=== PATIENT | female | born 1960 | race Caucasian/White ===

== ENCOUNTER 2020-01-14 10:42 | Observation (INO) | payer MEDICARE, MEDICAID, OTHER ==
[~2020-01-14 10:42] MED LIST: Iopamidol-370 76% 500 ML 1 ML ONE
--- NOTE | 2020-01-14 10:55 | CT ---
CT BRAIN WITHOUT CONTRAST: HISTORY: Level 1 stroke. Visual disturbances, weakness and slurred speech FINDINGS: No evidence of acute infarct, hemorrhage, midline shift or abnormal extra-axial fluid collections is seen. There are changes of mild chronic small vessel ischemic disease in the periventricular white matter. The ventricular size is appropriate and the basilar cisterns are patent. The bony calvarium i s intact. The visualized paranasal sinuses and mastoid air cells are well aerated. IMPRESSION: No CT evidence of acute intracranial process. Findings were discussed over the telephone with ER physician Dr. French Lancaster at 10:51 AM.
--- NOTE | 2020-01-14 11:19 | RAD ---
EXAM: CHEST ONE VIEW HISTORY: Level 1 stroke alert. Altered mental status. COMPARISON: None FINDINGS: The cardiac silhouette and pulmonary vasculature is within normal limits. The lungs are clear. There is left convex curvature of the thoracolumbar spine with degenerative changes noted in the spine. Postoperative changes left shoulder are partially imaged. IMPRESSION: No acute cardiopulmonary process.
--- NOTE | 2020-01-14 11:24 | CT ---
CT arteriogram neck with IV contrast and 3-D imaging CT arteriogram head with IV contrast and 3-D imaging HISTORY: Altered mental status. Slurred speech. TIA. FINDINGS: There is good contrast opacification of the aortic arch with normal branching of the great vessels. Arterial calcification most pronounced at the proximal right subclavian artery where moderate degree of stenosis, approximately 50%, is apparent. Good flow into each carotid and vertebra l system. Each carotid bifurcation is patent without plaque or calcification. [place] of [place] is intact. Good flow into each cerebral and cerebellar system. No enhancing brain lesions are apparent. Mild emphysematous changes at the lung apices evident. IMPRESSION : No acute intracranial or vascular abnormalities are demonstrated. Atherosclerosis with stenosis of the right subclavian artery. Findings were called to Dr. Lancaster in the emergency department at 1116 hours Code CR.
[2020-01-14] MEDS ORDERED: Aspirin 325 MG TAB ONE (11:45)
[2020-01-14 11:47] LABS: #Basophils 0.1 thou/uL (0.0-0.2); #Eosinphils 0.4 thou/uL (0.0-0.7); #Lymphocytes 1.6 thou/uL (1.20-3.40); #Monocytes 0.3 thou/uL (0.11-0.59); #Neutrophils 1.8 thou/uL (1.40-6.50); %Basophils 1.3 % (0.0-1.0); %Eosinophils 10.4 % (0.0-10.0); %Lymphocytes 37.9 % (21.0-51.0); %Monocytes 6.7 % (0.0-10.0); %Neutrophils 43.7 % (42.0-75.0); Hemoglobin 13.5 g/dL (12.0-16.0); Mean Corpuscular HGB CONC 32.5 g/dL (32.0-36.0); Mean Corpuscular Hemoglobin 33.1 pg (27.0-31.0); Mean Platelet Volume 9.7 fL (7.4-10.4); Platelet Count 131 thou/uL (130-400); RBC Distribution Width 11.5 % (11.5-14.5); Red Blood Cell (RBC) Count 4.06 mill/uL (4.20-5.40); White Blood Cell (WBC) Count 4.1 thou/uL (4.8-10.8)
[2020-01-14 11:55] LABS: PTT 32.7 sec (22.9-36.1); Prothrombin Time 12.8 sec (12.0-14.7)
[2020-01-14 12:09] LABS: ALT (SGPT) 11 U/L (8-55); AST (SGOT) 14 U/L (5-34); Albumin 3.4 g/dL (3.5-5.0); Alkaline Phosphatase 123 U/L (40-110); Anion Gap 9 mmol/L (10-20); BUN (Urea Nitrogen) 13 mg/dL (9.8-20.1); Bilirubin, Total 0.3 mg/dL (0.2-1.2); CK (CPK) 31 U/L (29-168); Calc. Creatinine Clearance 0 mL/min (70-130); Calcium 8.9 mg/dL (7.8-10.44); Carbon Dioxide 28 mmol/L (22-29); Chloride 105 mmol/L (98-107); Estimated GFR-MDRD Greater than 90; Globulin 2.6 g/dL (2.4-3.5); Glucose 88 mg/dL (70-105); Lipase 8 U/L (8-78); Sodium 138 mmol/L (136-145)
[2020-01-14 12:12] LABS: Alcohol Less than 10 mg/dL (Less than 10)
[2020-01-14 12:15] LABS: Acetaminophen Less than 6.0 mcg/mL (10.0-30.0); Salicylate Less than 8.0 mg/dL (15.0-30.0)
[2020-01-14] MEDS ORDERED: Lorazepam 0.5 MG TAB PO PRN (13:30)
[2020-01-14 13:36] LABS: Bilirubin Negative (Negative); Blood, Urine Negative (Negative); Clarity Clear (Clear); Glucose, Urine (Dipstick) Normal (Negative); Ketone, Urine Negative (Negative); Leukocyte Negative Leu/uL (Negative); Nitrite Negative (Negative); Protein, Urine (Dipstick) Negative (Neg-Trace); Specific Gravity, Urine 1.045 (1.002-1.036); Urobilinogen Normal mg/dL (Less than 2)
[2020-01-14 13:47] LABS: Amphetamine Not Detected (NotDetected); Barbiturates Screen Not Detected (NotDetected); Benzodiazepine Screen Detected (NotDetected); Cocaine Metabolite Screen Not Detected (NotDetected); Medtox Control Line Valid? VALID (VALID); Medtox Reader # READER 1; Methadone Not Detected (NotDetected); Methamphetamine Not Detected (NotDetected); Opiate Screen Detected (NotDetected); Oxycodone Screen Not Detected (NotDetected); Phencyclidine (PCP) Not Detected (NotDetected); THC/Cannabinoid Screen Not Detected (NotDetected); Tricyclic Screen Not Detected (NotDetected)
--- NOTE | 2020-01-14 13:58 | RAD ---
EXAM: LEFT HIP TWO VIEWS: 01/14/20 HISTORY: Left leg weakness, history of hip fracture. FINDINGS: Severe bone demineralization. Contrast media in the urinary bladder from previous contrast injection . Left hip nail stabilizing the left hip and proximal femur. No dislocation. No evidence for acute fr acture. IMPRESSION: Bone demineralization with some arthrosis and degenerative change. Left hip nail stabilizes the left hip and proximal femur. No fracture or dislocation. POS: RRE
--- NOTE | 2020-01-14 14:04 | RAD ---
EXAM: LEFT KNEE FOUR VIEWS: 01/14/20 HISTORY: Left leg weakness, history of prior left knee fracture. FINDINGS: Heterogeneous bone demineralization. Mild degenerative and osteoarthrosis changes. IMPRESSION: Bone demineralization with mild osteoarthrosis. No acute fracture or dislocation. POS: RRE
--- NOTE | 2020-01-14 14:18 | PDOC.HHP ---
Hospitalist HPI - History of Present Illness weakness History of Present Illness: This is 59 year old female with bipolar, anxiety who presented with weakness. THe patient states she woke up at 1:30 am. She was having difficulty standing up to go to the bathroom and realized that she couldn't move. SHe was able to sit herself in a recliner but still had difficulty getting up, so she called her sister who advised her to come to the ER. She reports an episode of slurred speech last Monday that resolved after a few hours. She denies headaches. She reports blurry vision even after wearing her glasses. SHe denies dysphagia, dysarthria, or numbness in her legs however she feels her left leg in particular is very difficult to lift up. She reports that her last stroke in 2005 affected her left hand and her left leg, however she is able to walk at baseline. She takes aspirin daily. SHe smokes two packs of cigarettes daily. ED Course: She was seen at an outside ER and had a normal blood pressure of 102/65. She was hypoxic with 02 sat 89% on room air. SHe was placed on 2L nasal cannula. She was life-flighted for stroke workup. SHe was given aspirin and IV fluid here. SHe had a CT head which showed Hospitalist ROS - Review of Systems Constitutional: reports: chills. denies: fever Eyes: denies: pain, vision change ENT: denies: ear pain, ear discharge Respiratory: reports: cough (chronic smokers cough) Cardiovascular: denies: chest pain, palpitations, orthopnea Gastrointestinal: denies: nausea, vomiting, abdominal pain, diarrhea Genitourinary: denies: dysuria, frequency Musculoskeletal: denies: neck pain, shoulder pain Skin: denies: rash, lesions Neurological: reports: weakness - Exam General Appearance: NAD, awake alert Eye: PERRL, anicteric sclera ENT: normocephalic atraumatic, no oropharyngeal lesions Neck: no JVD Heart: RRR, no murmur, no gallops, no rubs Respiratory: CTAB, no wheezes, no rales, no ronchi Gastrointestinal: soft, non-tender, non-distended, normal bowel sounds Extremities: no cyanosis, no clubbing, no edema Skin: normal turgor, no lesions, no rashes Neurological: cranial nerve grossly intact, normal sensation to touch, no focal deficits, no new deficit Neurological - other findings: left leg weakness, with difficulty lifting left leg up Musculoskeletal: normal tone, normal strength, no muscle wasting Psychiatric: normal affect, normal behavior, A&O x 3 Hospitalist Results - Labs Result Diagrams: 01/14/20 11:41 01/14/20 11:03 Lab results: WBC 4.1 thou/uL (4.8-10.8) L 01/14/20 11:41 Hgb 13.5 g/dL (12.0-16.0) 01/14/20 11:41 Hct 41.4 % (36.0-47.0) 01/14/20 11:41 MCV 102.0 fL (78.0-98.0) H 01/14/20 11:41 Plt Count 131 thou/uL (130-400) 01/14/20 11:41 Neutrophils % 43.7 % (42.0-75.0) 01/14/20 11:41 Sodium 138 mmol/L (136-145) 01/14/20 11:03 Potassium 4.0 mmol/L (3.5-5.1) 01/14/20 11:03 Chloride 105 mmol/L (98-107) 01/14/20 11:03 Carbon Dioxide 28 mmol/L (22-29) 01/14/20 11:03 BUN 13 mg/dL (9.8-20.1) 01/14/20 11:03 Creatinine 0.62 mg/dL (0.6-1.1) 01/14/20 11:03 Glucose 88 mg/dL (70-105) 01/14/20 11:03 Calcium 8.9 mg/dL (7.8-10.44) 01/14/20 11:03 Total Bilirubin 0.3 mg/dL (0.2-1.2) 01/14/20 11:03 AST 14 U/L (5-34) 01/14/20 11:03 ALT 11 U/L (8-55) 01/14/20 11:03 Alkaline Phosphatase 123 U/L (40-110) H 01/14/20 11:03 Ammonia 21 umol/L (18-72) 01/14/20 11:03 Creatine Kinase 31 U/L (29-168) 01/14/20 11:03 Troponin I 0.011 ng/mL (< 0.028) 01/14/20 11:03 B-Natriuretic Peptide Less than 10.0 pg/mL (0-100) 01/14/20 11:03 Serum Total Protein 6.0 g/dL (6.0-8.3) 01/14/20 11:03 Albumin 3.4 g/dL (3.5-5.0) L 01/14/20 11:03 Lipase 8 U/L (8-78) 01/14/20 11:03 Urine Ketones Negative mg/dL (Negative) 01/14/20 12:32 Urine Blood Negative (Negative) 01/14/20 12:32 Urine Nitrite Negative (Negative) 01/14/20 12:32 Ur Leukocyte Esterase Negative Lisa/uL (Negative) 01/14/20 12:32 Hospitalist H&P A/P - Plan Plan: CT head: no acute disease CTA: atherosclerosis with right subclavian artery stenosis 50% Chest X ray: no acute disease Left hip Xray: no fracture Knee X ray: history of knee fracture THis is a 59 year old female with history of stroke, bipolar, anxiety presenting with weakness, more pronounced on left side Acute TIA versus stroke - patient has left leg weakness. SHe is inconsistent with her history, at times states it is new and other times states she is not surprised - CT head is negative. CTA showed right subclavian artery stenosis 50% - MRI brain ordered - CXR negative, left hip and knee X ray showed no abnormalities - will consult neurology - check ECHO, TSH, A1C, consult stroke team Acute hypoxic resp failure - placed on oxygen for mild desat in oxygen to 89%. - daughter states patient was exposed to COVID. COVID swab will be sent - CXR normal - EKG unremarkable - troponin negative COPD - continue spiriva Tobacco abuse - nicotine patch Bipolar - continue tegretol Insomnia - continue restoril and geodon Anxiety - xanax 2 mg tid prn -
[2020-01-14] MEDS ORDERED: Lorazepam 1 MG TAB PO PRN (14:26)
[2020-01-14 15:14] VITALS: BMI 19.6
[2020-01-14 15:50] LABS: Hemoglobin A1c 4.7 % (4.0-6.0)
[2020-01-14 16:12] LABS: Carbamazepine-Tegretol 9.1 ug/mL (4.0-12.0)
[2020-01-14] MEDS: carBAMazepine 200 MG TAB PO SCH (16:54)
[2020-01-14] MEDS: ALPRAZolam 1 MG TAB PO PRN (16:56)
[2020-01-14] MEDS ORDERED: Albuterol Sulfate 2.5 mg/3 ml Neb NEB PRN (18:00)
[2020-01-14] MEDS: Ipratropium Bromide 2.5 ml Neb NEB SCH ×2 (19:34→23:46)
[2020-01-14] MEDS: Pregabalin 50 MG CAP PO SCH (20:59)
[2020-01-14] MEDS ORDERED: Pregabalin 50 MG CAP PO SCH (21:00)
[2020-01-14] MEDS: Atorvastatin Calcium 40 MG TAB PO SCH (21:00)
[2020-01-14] MEDS: HYDROcodone/Acetaminophen 10/325 mg Tablet PO PRN (21:00)
[2020-01-15] MEDS: Ipratropium Bromide 2.5 ml Neb NEB SCH ×4 (01:07→18:14)
[2020-01-15] MEDS: HYDROcodone/Acetaminophen 10/325 mg Tablet PO PRN ×2 (02:27→21:12)
[2020-01-15] MEDS: Temazepam 15 MG CAP PO PRN ×2 (02:29→22:40)
[2020-01-15 05:23] LABS: Hemoglobin 13.6 g/dL (12.0-16.0); Mean Corpuscular HGB CONC 32.9 g/dL (32.0-36.0); Mean Corpuscular Hemoglobin 33.6 pg (27.0-31.0); Mean Platelet Volume 9.2 fL (7.4-10.4); Platelet Count 139 thou/uL (130-400); RBC Distribution Width 11.6 % (11.5-14.5); Red Blood Cell (RBC) Count 4.05 mill/uL (4.20-5.40); White Blood Cell (WBC) Count 5.1 thou/uL (4.8-10.8)
[2020-01-15 05:45] LABS: Anion Gap 10 mmol/L (10-20); BUN (Urea Nitrogen) 19 mg/dL (9.8-20.1); Calc. Creatinine Clearance 64 mL/min (70-130); Calcium 8.6 mg/dL (7.8-10.44); Carbon Dioxide 28 mmol/L (22-29); Cardiac Risk 2.7 (Less than 4.5); Chloride 110 mmol/L (98-107); Cholesterol 152 mg/dl (< 200 Desired); Estimated GFR-MDRD 68; Glucose 99 mg/dL (70-105); HDL Cholesterol 56 mg/dL (>60 Neg Risk); LDL Cholesterol, Calculated 71 mg/dL; Potassium 4.4 mmol/L (3.5-5.1); Sodium 144 mmol/L (136-145); Triglycerides 124 mg/dL (Less than 150)
[2020-01-15] MEDS: Pregabalin 50 MG CAP PO SCH ×2 (08:33→21:11)
[2020-01-15] MEDS: carBAMazepine 200 MG TAB PO SCH ×2 (08:34→16:45)
[2020-01-15] MEDS: ALPRAZolam 1 MG TAB PO PRN ×2 (08:34→19:45)
[2020-01-15] MEDS: DULoxetine 60 MG CAP PO SCH (08:35)
[2020-01-15] MEDS: Aspirin 325 MG TAB PO SCH (08:35)
[2020-01-15] MEDS ORDERED: Aspirin 81 mg Enteric Coated Tablet PO SCH (09:00)
--- NOTE | 2020-01-15 10:03 | MRI ---
Exam: Brain MRI without contrast HISTORY: Left leg weakness, difficulty lifting leg. COMPARISON: None FINDINGS: Calvarial marrow signal intensity: Appropriate T1 signal Gradient echo sequence: No hemorrhage Brain parenchyma: No mass, mass effect or midline shift. Brain volume, age-appropriate. Cortical peguero-white matter differentiation: Preserved Restricted diffusion: Central arterial flow voids are maintained. Absent restricted diffusion White matter signal intensities: T2, FLAIR white matter hyperintensities due to chronic small vessel ischemic changes Sinuses: Mild mucosal disease of the paranasal sinuses. IMPRESSION: Absent restricted diffusion. No acute infarct.
[2020-01-15] MEDS ORDERED: Sodium Chloride 0.9% 500 ML IVPB PRN (11:02)
--- NOTE | 2020-01-15 12:35 | CON ---
NEUROLOGY CONSULTATION DATE OF CONSULTATION: 01/15/2020 REASON FOR CONSULTATION: Transient ischemic attack. HISTORY OF PRESENT ILLNESS: Ms. Jane Hein is a 59-year-old female with history significant for anxiety, bipolar disorder, presented with weakness. According to the patient, she woke up at 1:30 a.m. on 01/14/2020 and found that she had difficulty going to the restroom and she was unable to move. She called her sister who advised her to come to the emergency room for further evaluation. Per the patient, she also had an episode of slurred speech that resolved over a few hours last week. The patient denies nausea, vomiting, headache, dysphagia, dysarthria , focal paresthesias, loss of vision, loss of consciousness, or abnormal body movement associated with this episode. She does have residual left hemiparesis because of the prior stroke in 2005, but she is able to walk at baseline. In the emergency room, the blood pressure was found to be 102/65 and she was hypoxic with oxygen saturation of 89%. She was placed on 2 L oxygen and was given aspirin and IV fluids. The head CT was done, which was negative for acute intracranial pathology. REVIEW OF SYSTEMS: All 12 systems were reviewed and were negative except the pertinent positives and negatives mentioned in the HPI. PAST MEDICAL HISTORY: Anxiety, bipolar disorder, prior CVA with residual left hemiparesis in 2005. PAST SURGICAL HISTORY: None. FAMILY HISTORY: There is no significant family history. ALLERGIES: OLANZAPINE, SERTRALINE. HOME MEDICATIONS: 1. Aspirin 325 mg daily. 2. Spiriva. 3. Tegretol. 4. Restoril. 5. Geodon. 6. Xanax 2 mg t.i.d. p.r.n. SOCIAL HISTORY: The patient smokes 2 packs of cigarettes daily. She denies alcohol abuse or illegal drug use. PHYSICAL EXAMINATION: VITAL SIGNS: Blood pressure 100/55, pulse 90, and respiratory rate 16. GENERAL: Alert and awake female, in no acute distress. HEENT: Normocephalic, atraumatic. CHEST: Clear. ABDOMEN: Soft. NECK: No carotid bruit. NEUROLOGIC: Mental status; the patient is alert and oriented to person and place. Cranial nerves; pupils 4 mm, round and reactive to light. Face, left facial droop. Tongue midline. Moves neck in both directions. Hearing seems to be intact. Extraocular movements intact. Shrug shoulders bilaterally. Sensory, intact. . Motor; muscle tone and bulk are normal. Left hemiparesis. Cerebellar; unable to perform on the left secondary to weakness. Gait deferred due to the patient's safety reasons. Lab results: WBC 4.1 thou/uL (4.8-10.8) L 01/14/20 11:41 Hgb 13.5 g/dL (12.0-16.0) 01/14/20 11:41 Hct 41.4 % (36.0-47.0) 01/14/20 11:41 MCV 102.0 fL (78.0-98.0) H 01/14/20 11:41 Plt Count 131 thou/uL (130-400) 01/14/20 11:41 Neutrophils % 43.7 % (42.0-75.0) 01/14/20 11:41 Sodium 138 mmol/L (136-145) 01/14/20 11:03 Potassium 4.0 mmol/L (3.5-5.1) 01/14/20 11:03 Chloride 105 mmol/L (98-107) 01/14/20 11:03 Carbon Dioxide 28 mmol/L (22-29) 01/14/20 11:03 BUN 13 mg/dL (9.8-20.1) 01/14/20 11:03 Creatinine 0.62 mg/dL (0.6-1.1) 01/14/20 11:03 Glucose 88 mg/dL (70-105) 01/14/20 11:03 Calcium 8.9 mg/dL (7.8-10.44) 01/14/20 11:03 Total Bilirubin 0.3 mg/dL (0.2-1.2) 01/14/20 11:03 AST 14 U/L (5-34) 01/14/20 11:03 ALT 11 U/L (8-55) 01/14/20 11:03 Alkaline Phosphatase 123 U/L (40-110) H 01/14/20 11:03 Ammonia 21 umol/L (18-72) 01/14/20 11:03 Creatine Kinase 31 U/L (29-168) 01/14/20 11:03 Troponin I 0.011 ng/mL (< 0.028) 01/14/20 11:03 B-Natriuretic Peptide Less than 10.0 pg/mL (0-100) 01/14/20 11:03 Serum Total Protein 6.0 g/dL (6.0-8.3) 01/14/20 11:03 Albumin 3.4 g/dL (3.5-5.0) L 01/14/20 11:03 Lipase 8 U/L (8-78) 01/14/20 11:03 Urine Ketones Negative mg/dL (Negative) 01/14/20 12:32 Urine Blood Negative (Negative) 01/14/20 12:32 Urine Nitrite Negative (Negative) 01/14/20 12:32 Ur Leukocyte Esterase Negative Lisa/uL (Negative) 01/14/20 12:32 LABORATORY DATA: Data reviewed. I reviewed the labs, which were essentially unremarkable. I also reviewed the head CT, which did not reveal any acute intracranial pathology. CT angiogram showed atherosclerosis with right subclavian artery stenosis 50%. Chest x-ray did not reveal any acute disease. ASSESSMENT AND PLAN: Ms. Jane Hein is a 59-year-old female, who was consulted because of worsening residual left lower extremity weakness. She does have risk factors for transient ischemic attack and stroke. MRI of the brain reviewed, which was negative for acute intracranial process. Neuro checks every 4 hours. Telemetry. Echocardiography to rule out cardioembolic source. Continue aspirin and consider statin for secondary stroke prevention. Check lipid panel, hemoglobin A1c, TSH, folic acid, vitamin B12. PT/OT/speech. Continue home medication. Continue medical management per primary team. We will continue to follow. Thank you for the consult. Job ID: [id number] [facility]OSPITALChristoph
--- NOTE | 2020-01-15 16:18 | PDOC.HOSPP ---
- Subjective Encounter Date: 01/15/20 Encounter Time: 07:30 Subjective: THe patient states she is doing better. She is able to move her left leg more and lift it up now. She is very anxious and asking for her xanax - Objective Vital Signs & Weight: Vital Signs (12 hours) Temp Pulse Resp BP BP Pulse Ox 01/15/20 15:17 99.2 F 78 16 122/63 94 L 01/15/20 12:06 116/67 01/15/20 11:40 97.9 F 77 16 95 01/15/20 10:58 85/43 L 01/15/20 10:50 86/52 L 01/15/20 07:58 90 20 94 L 01/15/20 07:36 97.8 F 91 20 102/59 L 94 L 01/15/20 05:52 98.8 F 74 16 110/57 L 90 L Weight Weight 125 lb 7 oz I&O: 01/14/20 01/15/20 01/16/20 06:59 06:59 06:59 Intake Total 490 510 Output Total 0 Balance 490 510 Result Diagrams: 01/15/20 05:08 01/15/20 05:08 Hospitalist ROS - Review of Systems Constitutional: denies: fever, chills - Medication Medications: Active Medications Generic Name Dose Route Start Last Admin Trade Name Freq PRN Reason Stop Dose Admin Hydrocodone Bitart/Acetaminophen 1 tab 01/14/20 14:27 01/15/20 02:27 [place] 10/325 PO 1 tab Q6H PRN Administration Severe Pain (7-10) Alprazolam 2 mg 01/14/20 16:46 01/15/20 08:34 Xanax PO 2 mg TIDPRN PRN Administration Anxiety Aspirin 325 mg 01/15/20 09:00 01/15/20 08:35 Aspirin PO 325 mg DAILY ROBEL Administration Atorvastatin Calcium 40 mg 01/14/20 21:00 01/14/20 21:00 Lipitor PO 40 mg HS ROBEL Administration Carbamazepine 300 mg 01/14/20 17:00 01/15/20 08:34 Tegretol PO 300 mg BID-WM ROBEL Administration Duloxetine HCl 60 mg 01/15/20 09:00 01/15/20 08:35 Cymbalta PO 60 mg DAILY ROBEL Administration Ipratropium [place] 2.5 ml 01/14/20 19:00 01/15/20 13:55 Atrovent NEB Not Given [id number] ROBEL Pregabalin 200 mg 01/14/20 21:00 01/15/20 08:33 Lyrica PO 200 mg BID ROBEL Administration Sodium Chloride 10 ml 01/14/20 14:13 01/15/20 08:36 Flush - Normal Saline IVF 10 ml PRN PRN Administration Saline Flush Temazepam 30 mg 01/14/20 14:27 01/15/20 02:29 Restoril PO 30 mg HSPRN PRN Administration Insomnia Ziprasidone 80 mg 01/14/20 21:00 01/14/20 21:01 Geodon PO 80 mg HS ROBEL Administration - Exam General Appearance: NAD, awake alert Eye: PERRL, anicteric sclera ENT: normocephalic atraumatic, no oropharyngeal lesions Neck: no JVD Heart: RRR, no murmur, no gallops, no rubs Respiratory: CTAB, no wheezes, no rales, no ronchi Gastrointestinal: soft, non-tender, non-distended, normal bowel sounds Extremities: no cyanosis, no clubbing, no edema Skin: normal turgor, no lesions, no rashes Neurological: cranial nerve grossly intact, normal sensation to touch, no focal deficits, no new deficit Neurological - other findings: left arm and leg 4/5. Right arm and leg 5/5 Musculoskeletal: normal tone, normal strength, no muscle wasting Psychiatric: normal affect, normal behavior, A&O x 3 Hosp A/P - Plan THis is a 59 year old female with history of stroke, bipolar, anxiety presenting with weakness, more pronounced on left side Acute TIA - MRI of the brain is negative. CT head negative, CTA showed right subclavian artery stenosis 50% - ECHO pending, TSH, A1C and lipid panel normal - left hip and knee X ray show no fractures - PT and OT have evaluated patient and recommended rehab - case management consulted Acute hypoxic resp failure - resolved - placed on oxygen for mild desat in oxygen to 89%. - COVID negative, EKG and troponin normal, CXR normal COPD - continue spiriva Tobacco abuse - nicotine patch Bipolar - continue tegretol Insomnia - continue restoril and geodon Anxiety - xanax 2 mg tid prn
[2020-01-15] MEDS: Nicotine 21 MG PATCH TD SCH (16:45)
[2020-01-15] MEDS ORDERED: Benzonatate 100 MG CAP PO PRN (19:04)
[2020-01-15] MEDS: Atorvastatin Calcium 40 MG TAB PO SCH (21:10)
[2020-01-15] MEDS: Loratadine 10 MG TAB PO PRN (21:22)
[2020-01-16] MEDS: Ipratropium Bromide 2.5 ml Neb NEB SCH ×4 (02:05→18:23)
[2020-01-16] MEDS: Aspirin 325 MG TAB PO SCH (09:31)
[2020-01-16] MEDS: carBAMazepine 200 MG TAB PO SCH ×2 (09:31→17:31)
[2020-01-16] MEDS: Pregabalin 50 MG CAP PO SCH (09:32)
[2020-01-16] MEDS: DULoxetine 60 MG CAP PO SCH (09:32)
[2020-01-16] MEDS: HYDROcodone/Acetaminophen 10/325 mg Tablet PO PRN ×2 (09:33→15:33)
[2020-01-16] MEDS: ALPRAZolam 1 MG TAB PO PRN ×2 (09:34→17:32)
--- NOTE | 2020-01-16 14:55 | EEG ---
DATE OF SERVICE: 01/16/2020 ATTENDING PHYSICIAN: Jasmina Burr MD This EEG was performed using 24-channel [employer] video digital EEG machine with 24-disk electrodes. This was an extended 2 hours 8 minutes of inpatient video EEG recording. Digital analysis of the EEG was done for spike and seizure detection, which revealed no abnormalities. BACKGROUND: Posterior background rhythm is 8.5 to 9 Hz. This is a nonsustained posterior background rhythm. Minimal reactivity is seen with eye opening and closure. HYPERVENTILATION: Not performed. PHOTIC STIMULATION: No significant response seen with photic stimulation. SLEEP: Drowsiness and sleep were observed. EEG DIAGNOSES: 1. Intermittent irregular theta activity seen during the recording. 2. Nonsustained posterior background rhythm. CLINICAL INTERPRETATION: This EEG is consistent with mild generalized nonspecific cerebral dysfunction. No ictal or interictal epileptiform abnormalities seen during the recording. Job ID: [id number]
[2020-01-16 16:04] VITALS: BP 93/51; TEMP 98.3
[2020-01-16] MEDS: Nicotine 21 MG PATCH TD SCH (17:32)
[2020-01-16] MEDS: Loratadine 10 MG TAB PO PRN (17:32)
--- NOTE | 2020-01-16 20:00 | DIS ---
DATE OF ADMISSION: 01/14/2020 DATE OF DISCHARGE: 01/16/2020 DISCHARGE DIAGNOSES: 1. Left-sided weakness and slurred speech, possibly secondary to transient ischemic attack versus adverse side effects from multiple psychiatric medications. 2. Acute hypoxic respiratory failure. CONSULTATIONS: Neurology with Dr. Jasmina Burr. PROCEDURES PERFORMED: EEG and echo. BRIEF HISTORY OF PRESENT ILLNESS: This is a 59-year-old female with a past medical history of stroke, anxiety, bipolar, who presented to the emergency room with weakness. The patient stated that she went to the bathroom and after sitting in her recliner, was not able to get up. She also had an episode of slurred speech the week before that resolved after a few hours. She denied any dysphagia or dysarthria, but reports that her left leg was very difficult to lift up. The patient presented to an outside hospital and had normal vital signs except for an O2 saturation of 89% on room air. She was placed on 2 L nasal cannula. She was life-flighted here for a stroke workup. CT head in the emergency room was unremarkable and CTA showed right subclavian artery stenosis of 50%. HOSPITAL COURSE: Acute TIA versus medication adverse effect, possibly Xanax: The patient had a CT scan of her head, which showed no acute disease. MRI of her brain showed no stroke. CTA of her head and neck showed no major stenosis, but an incidental right subclavian artery stenosis. Chest x-ray was normal. She also had a left hip and knee x-ray, which showed no fractures. Echocardiogram showed grade 1/3 diastolic dysfunction with bundle branch block morphology. TSH, A1c were normal. She was seen by Physical Therapy, Occupational Therapy, and Speech. PT and OT both recommended that the patient go to rehab. On 01/14, the patient did have some hypotension after she received her 2 mg of Xanax, which was her home medication. She was also very drowsy with this. Her Xanax was reduced to 1 mg t.i.d. She will be transferred to [facility] for further care. Acute hypoxic respiratory failure: The patient did have a mild desaturation of her oxygen to 89% on room air. According to the daughter, she had a recent COVID exposure. COVID swab was sent, which was negative. Her chest x-ray was normal. EKG was unremarkable. Her troponins were normal. DISCHARGE PHYSICAL EXAMINATION: VITAL SIGNS: Temperature 98.3, heart rate 80, respiratory rate 22, O2 saturation 96% on room air, and blood pressure 93/51. GENERAL: The patient is alert, awake, and oriented x3. CVS: Regular rate and rhythm with no murmurs, rubs, or gallops. LUNGS: Clear to auscultation bilaterally. ABDOMEN: Positive bowel sounds, soft, nontender, nondistended. EXTREMITIES: No edema. NEURO: The patient's cranial nerves 2 through 12 are intact. She has 5/5 strength of her upper and lower extremities. She has intact sensation in all 4 extremities and full range of motion in all 4 extremities. LABORATORY DATA: CBC, 01/14: Normal. BMP, 01/14: Normal. Hemoglobin A1c: 4.7. LFTs, 01/13: Mildly elevated alkaline phosphatase of 123. Troponin I: 0.011. Lipid panel: Triglyceride is 124, LDL 71, HDL 56, TSH 0.6. UA, 01/13: Normal. U-tox: Positive for opiates and benzos. COVID PCR serology, 01/13: Negative. IMAGING: CT brain, 01/13: Shows no acute disease. CTA of her head and neck: Shows right subclavian artery stenosis, 50%. Mild emphysematous changes at the lung apices. Chest x-ray, 01/13: No acute process. Hip x-ray, 01/13: Bone demineralization with arthrosis and degenerative change. Knee x-ray, 01/13: Demineralization with mild osteoarthrosis. Brain MRI, 01/14: Absent restricted diffusion. No acute infarct. Echo, 01/14: EF of 50% to 55%. Grade 1/3 diastolic dysfunction. Mild MR. Mild TR. Septal bowing consistent with BBB morphology. PROCEDURES: EEG diagnoses: The patient had intermittent irregular theta activity with nonsustained posterior background rhythm. DISCHARGE CONDITION: Stable. ACTIVITY: As tolerated. DIET: Regular diet. DISCHARGE MEDICATIONS: 1. Aspirin 81 mg daily. 2. Atorvastatin 40 mg p.o. at bedtime. Medication changes: Xanax was reduced to 1 mg p.o. t.i.d. p.r.n. DISCHARGE INSTRUCTIONS: The patient is to follow up with her PCP in a week. She will be discharged to [facility] for further evaluation. Job ID: [id number] [facility]
--- NOTE | 2020-01-20 15:44 | CT ---
"PRELIMINARY REPORT" CT arteriogram neck with IV contrast and 3-D imaging CT arteriogram head with IV contrast and 3-D imaging HISTORY: Altered mental status. Slurred speech. TIA. FINDINGS: There is good contrast opacification of the aortic arch with normal branching of the great vessels. Arterial calcification most pronounced at the proximal right subclavian artery where moderate degree of stenosis, approximately 50%, is apparent. Good flow into each carotid and vertebra l system. Each carotid bifurcation is patent without plaque or calcification. [place] of [place] is intact. Good flow into each cerebral and cerebellar system. No enhancing brain lesions are apparent. Mild emphysematous changes at the lung apices evident. IMPRESSION : No acute intracranial or vascular abnormalities are demonstrated. Atherosclerosis with stenosis of the right subclavian artery. Findings were called to Dr. Lancaster in the emergency department at 1116 hours Code CR. Transcribed Date/Time: 01/20/2020 2:22 PM
== END 2020-01-16 19:10 ==
LOC: ERS 10:42 → 2SE 12:43
PROVIDERS: ADMIT Internal Medicine; ATTEND Internal Medicine
DX: R53.1 Weakness (principal); R47.81 Slurred speech; J96.01 Acute respiratory failure with hypoxia; F31.9 Bipolar disorder, unspecified; F41.9 Anxiety disorder, unspecified; F17.210 Nicotine dependence, cigarettes, uncomplicated; J44.9 Chronic obstructive pulmonary disease, unspecified; G47.00 Insomnia, unspecified; E78.5 Hyperlipidemia, unspecified; I69.954 Hemiplegia and hemiparesis following unspecified cerebrovascular disease affecting left non-dominant side; I70.298 Other atherosclerosis of native arteries of extremities, other extremity; Z20.828 Contact with and (suspected) exposure to other viral communicable diseases; Z79.82 Long term (current) use of aspirin; Z79.899 Other long term (current) drug therapy; Z88.8 Allergy status to other drugs, medicaments and biological substances
CPT/HCPCS: 70450; 70496; 70498; 70551; 71045; 73502; 73564; 80048; 80061; 80156; 80306; 80307; 81003; 82140; 82550; 82962 ×2; 83036; 83690; 83880; 84484; 85027; 85610; 85730; 93005; 93306; 94640 ×3; 95712; 95816; 95819; 95957; 96360; 97139 ×5; 97530; 99285; G0378 ×4; U0002; 36415; 36416; 80053; 84443; 85025; J7030; Q9967